=== PATIENT | female | born 1955 ===

== ENCOUNTER 2017-02-17 07:43 | Day surgery (SDC) | payer BC ==
[2017-02-17] MEDS ORDERED: Lactated Ringer's 1,000 ML IV ONE (08:30)
[2017-02-17 08:49] VITALS: TEMP 98
[2017-02-17] MEDS ORDERED: Propofol 10 mg/ml Inj (20 ML) ONE (09:16)
[2017-02-17] MEDS ORDERED: Lidocaine 2% MPF (5 ml) Inj ONE (09:16)
[2017-02-17] MEDS ORDERED: Midazolam 2 MG/2 ML VIAL ONE (09:16)
[2017-02-17 09:39] VITALS: O2SAT 100
[2017-02-17 09:52] VITALS: BP 110/68; PULSE 69; RESP 13
== END 2017-02-17 10:05 | disposition home or self-care (01) ==
LOC: H.ENDO 07:43
PROVIDERS: ATTEND Internal Medicine Gastroenterology
DX: K30 Functional dyspepsia (principal); E11.9 Type 2 diabetes mellitus without complications; E78.5 Hyperlipidemia, unspecified; I10 Essential (primary) hypertension; R12 Heartburn; K21.9 Gastro-esophageal reflux disease without esophagitis; K44.9 Diaphragmatic hernia without obstruction or gangrene; K21.0 Gastro-esophageal reflux disease with esophagitis; K29.50 Unspecified chronic gastritis without bleeding; B96.81 Helicobacter pylori [H. pylori] as the cause of diseases classified elsewhere
CPT/HCPCS: 43239; 88305; J2250; J2704; J7120